=== PATIENT | female | born 1990 | race Caucasian/White ===

== ENCOUNTER 2016-11-06 00:54 | Emergency (ER) | payer OTHER ==
[~2016-11-06] VITALS: Ht 160 cm; Wt 70.0 kg
[~2016-11-06 00:54] MED LIST: MACR100C PO; PHEN-426 PO
[2016-11-06 00:58] VITALS: BP 139/83; PULSE 122; RESP 16; TEMP 97.9; O2SAT 100
[2016-11-06] MEDS ORDERED: SODIUM CHLOR 0.9% 1000 ML INJ 1,000 ML IV ONE (01:15)
[2016-11-06] MEDS ORDERED: SODIUM CHLORIDE 0.9% FLUSH 10 ML FLUSH IVF PRN (01:15)
--- NOTE | 2016-11-06 01:36 | PD ---
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 The patient's first was an . The patient has been followed by Dr. Barros and had an ultrasound performed at 8 weeks of which was normal. The patient has had some intermittent light spotting throughout the , however, had some large vaginal bleeding earlier this evening without any visible products of conception. She states abdominal cramping is 2/10, located in the pelvis, nonradiating, associated with bright red bleeding without any visible clots. The patient has been taking vitamins, denies any chronic medical problems, medications, or allergies. Symptoms are moderate, possibly exacerbated by her current . She took Tylenol prior to arrival with mild alleviation of her symptoms. PFSH Past Medical History Hx Anticoagulant Therapy: No Cardiovascular Problems: No Chemotherapy: No Cerebrovascular Accident: No Diabetes: No Diminished Hearing: No Respiratory: No Tetanus Vaccination: Unknown ?: LMP: 08/23/16 : 2 Para: 0 : 1 Past Surgical History Hysterectomy: No Oral Surgery: Yes (WISDOM TEETH X4 EXTRACTION) Social History Alcohol Use: No Tobacco Use: No Substance Use: No Allergies-Medications (Allergen,Severity, Reaction): Coded Allergies: No Known Allergies (Verified , 11/06/16) Reported Meds & Prescriptions Reported Meds & Active Scripts Active No Active Prescriptions or Reported Medications Review of Systems Except as stated in HPI: all other systems reviewed are Neg General / Constitutional: No: Fever Cardiovascular: No: Chest Pain or Discomfort Respiratory: No: Shortness of Breath Gastrointestinal: No: Nausea, Vomiting, Abdominal Pain Genitourinary: Positive: Pelvic Pain (cramping), Vaginal Bleeding Neurologic: No: Dizziness Physical Exam Narrative GENERAL: Awake, alert, pleasant 26 year-old female who appears her stated age and is somewhat tearful. SKIN: Focused skin assessment warm/dry. HEAD: Atraumatic. Normocephalic. EYES: No injection or drainage. ENT: No nasal bleeding or discharge. Mucous membranes pink and moist. NECK: Trachea midline. No JVD. CARDIOVASCULAR: Regular rate and rhythm. No murmur appreciated. RESPIRATORY: No accessory muscle use. Clear to auscultation. Breath sounds equal bilaterally. GASTROINTESTINAL: Abdomen soft, non-tender, nondistended. No rebound tenderness. MUSCULOSKELETAL: No obvious deformities. No clubbing. No cyanosis. No edema. NEUROLOGICAL: Awake and alert. No obvious cranial nerve deficits. Motor grossly within normal limits. Normal speech. PSYCHIATRIC: Appropriate mood and affect; insight and judgment normal. Data Data Last Documented VS Vital Signs Date Time Temp Pulse Resp B/P Pulse Ox O2 Delivery O2 Flow Rate FiO2 11/06/16 00:58 97.9 122 16 139/83 100 Room Air Orders Beta Hcg (Quant/Titer) (11/06/16 01:15) Complete Rh (11/06/16 01:15) Urinalysis - C+S If Indicated (11/06/16 01:15) Iv Access Insert/Monitor (11/06/16 01:15) Sodium Chloride 0.9% Flush (Ns Flush) (11/06/16:15) Sodium Chlor 0.9% 1000 Ml Inj (Ns 1000 M (11/06/16 01:15) Ed Urine Pregnancytest Poc (11/06/16 01:15) Ed Poc Ultrasound (11/06/16 01:15) Labs Laboratory Tests Test 11/06/16 11/06/16 01:17 02:53 Human Chorionic Gonadotropin, 48[address] MIU/ML Quant Blood Type A POSITIVE Rho(D) Type POSITIVE Urine Color LIGHT-YELLOW Urine Turbidity CLEAR Urine pH 6.5 Urine Specific [place] 1.004 Urine Protein NEG mg/dL Urine Glucose (UA) NEG mg/dL Urine Ketones 10 mg/dL Urine Occult Blood MOD Urine Nitrite NEG Urine Bilirubin NEG Urine Urobilinogen LESS THAN 2.0 MG/DL Urine Leukocyte Esterase NEG Urine RBC 1 /hpf Urine WBC 2 /hpf Urine Squamous Epithelial <1 /hpf Cells Microscopic Urinalysis Comment CULT NOT INDICATED MDM Medical Decision Making Medical Screen Exam Complete: Yes Emergency Medical Condition: Yes Medical Record Reviewed: Yes Interpretation(s) Laboratory Tests Test 11/06/16 11/06/16 01:17 02:53 Human Chorionic Gonadotropin, 93623 MIU/ML Quant Blood Type A POSITIVE Rho(D) Type POSITIVE Urine Color LIGHT-YELLOW Urine Turbidity CLEAR Urine pH 6.5 Urine Specific [place] 1.004 Urine Protein NEG mg/dL Urine Glucose (UA) NEG mg/dL Urine Ketones 10 mg/dL Urine Occult Blood MOD Urine Nitrite NEG Urine Bilirubin NEG Urine Urobilinogen LESS THAN 2.0 MG/DL Urine Leukocyte Esterase NEG Urine RBC 1 /hpf Urine WBC 2 /hpf Urine Squamous Epithelial <1 /hpf Cells Microscopic Urinalysis Comment CULT NOT INDICATED Differential Diagnosis Differential diagnosis includes , threatened AB, incomplete AB, inevitable AB, UTI, dehydration. Narrative Course IV was established, labs are drawn and sent, and the patient was placed on cardiac telemetry monitoring and continuous pulse oximetry monitoring. Bedside ultrasound was performed which reveals an IUP that is low within the uterine segment near the entrance of the cervix with positive heart tones and activity. The patient was shown the ultrasound as it was performed real-time. Rh status was sent to lab. UA was sent to lab. The patient was administered 1 L of IV fluids. The patient is a positive, therefore, no indication for RhoGAM. UA reveals 10 ketones, the patient was administered fluids. The patient is advised to follow-up with her bobbin washer on Monday or return in 48 hours for repeat ultrasound at bedside. She is advised bed rest, no heavy lifting, no sexual activity. Return sooner if bleeding or cramping worsens. Procedures Procedure Narrative Bedside ultrasound was performed using a curvilinear probe. The is located within the uterus, however, low within the uterus at the entrance of the cervix. There were positive heart tones and activity, the patient was shown the ultrasound as it was performed real-time. Rh status was sent to lab and the patient was administered 1 L of IV fluids. Diagnosis Primary Impression: Threatened Patient Instructions: General Instructions Additional Instructions: Follow-up with your bobbin washer on Monday. Return to 48 hours if symptoms worsen or progress. Bed rest, no heavy lifting, no sexual activity. Plenty fluids to stay hydrated. Return immediately if you pass products of conception or bleeding significantly worsens. Med/Other Pt SpecificInfo: No Change to Meds Scripts No Active Prescriptions or Reported Meds Disposition: DISCHARGE HOME Condition: Stable Heron Newell MD Nov 06, 2016 01:36
[2016-11-06 02:12] LABS: BETA HCG QUANT 84537 MIU/ML (0-5)
[2016-11-06 03:10] LABS: BLOOD, URINE MOD (NEG); GLUCOSE,URINE NEG (NEG); KETONE, URINE 10 mg/dL (NEG); NITRITE,URINE NEG (NEG); PH, URINE 6.5 (5.0-8.5); SQUAMOUS EPITHELIAL CELL URINE <1 /hpf (0-5); URINE COLOR LIGHT-YELLOW (YELLW/STRAW)
[2016-11-06 03:11] LABS: COMMENT (UR) CULT NOT INDICATED; CULTURE IF INDICATED CULT NOT INDICATED
[2016-11-07] MEDS ORDERED: DOXY100C PO (00:22)
[2016-11-07] MEDS ORDERED: IBUP-232 PO (00:22)
[2016-11-07] MEDS ORDERED: NORC5TAB PO (00:22)
== END 2016-11-06 03:38 | disposition home or self-care (01) ==
LOC: NEPC 00:54
DX: O20.0 Threatened abortion (principal); O26.891 Other specified pregnancy related conditions, first trimester; R10.2 Pelvic and perineal pain; Z3A.10 10 weeks gestation of pregnancy
CPT/HCPCS: 81001; 84702; 84703; 86901; 96360; 96361; 99284; J7030

== ENCOUNTER 2016-11-06 19:12 | Emergency (ER) | payer OTHER ==
[~2016-11-06] VITALS: Ht 160 cm; Wt 70.0 kg
[2016-11-06 19:15] VITALS: BP 125/65; PULSE 90; RESP 16; TEMP 97.7; O2SAT 100
[2016-11-06] MEDS ORDERED: SODIUM CHLOR 0.9% 1000 ML INJ 1,000 ML IV ONE ×2 (19:38→20:45)
[2016-11-06] MEDS ORDERED: MORPHINE SULFATE 4 MG/ML INJ IV PUSH ONE ×4 (19:45→22:45)
[2016-11-06] MEDS ORDERED: ONDANSETRON HCL 4 MG/2 ML VIAL IV PUSH ONE (19:45)
--- NOTE | 2016-11-06 19:54 | PD ---
HPI Chief Complaint: Related Problem Time Seen by Provider: 19:38 Travel History International Travel<30 days: No Contact w/Intl Traveler<30days: No Traveled to known affect area: No History of Present Illness HPI The patient is a 26-year-old female who presents emergency Department for vaginal bleeding in . The patient is whose last menstrual cycle was August 23, 2016. The patient's first was of the . The patient states she developed some intermittent vaginal spotting earlier this month, was seen in emergency department yesterday for heavy vaginal bleeding and cramping. The patient had a bedside ultrasound at that time which revealed an IUP with positive heart tones, however, ultrasound revealed that the was low in the uterus and cervix. She presents with increasing cramping and increasing bleeding which started this morning. She now states she is passing dark red blood clots, denies the passage of of any visible products of conception. The abdominal cramping is moderate, associated with bleeding, and persistent. 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 The patient also notes mild nausea with one episode of vomiting earlier today. PFSH Past Medical History Hx Anticoagulant Therapy: No Cardiovascular Problems: No Chemotherapy: No Cerebrovascular Accident: No Diabetes: No Diminished Hearing: No Respiratory: No ?: LMP: 10 WEEKS : 2 Para: 0 : 1 Past Surgical History Hysterectomy: No Oral Surgery: Yes (WISDOM TEETH X4 EXTRACTION) Social History Alcohol Use: No Tobacco Use: No Substance Use: No Allergies-Medications (Allergen,Severity, Reaction): Coded Allergies: No Known Allergies (Verified , 11/06/16) Reported Meds & Prescriptions Reported Meds & Active Scripts Active Ibuprofen 600 Mg Tab 600 Mg PO Q6H PRN [place] (Hydrocodone-Acetaminophen) 5-325 mg Tab 1 Tab PO Q6H PRN Doxycycline Hyclate 100 Mg Cap 100 Mg PO BID Review of Systems Except as stated in HPI: all other systems reviewed are Neg Gastrointestinal: Positive: Nausea, Vomiting Genitourinary: Positive: Pelvic Pain, Vaginal Bleeding Physical Exam Narrative GENERAL: Awake, alert, pleasant 26 year-old female who appears her stated age is in no acute respiratory distress. She does appear moderate discomfort. SKIN: Focused skin assessment warm/dry. HEAD: Atraumatic. Normocephalic. EYES: No scleral icterus. ENT: No nasal bleeding or discharge. Mucous membranes pink and moist. NECK: Trachea midline. No JVD. CARDIOVASCULAR: Regular rate and rhythm. No murmur appreciated. RESPIRATORY: No accessory muscle use. Clear to auscultation. Breath sounds equal bilaterally. GASTROINTESTINAL: Abdomen soft, mild suprapubic tenderness. Pelvic: The exam was performed in the presence of a female nurse. External examination reveals blood at the introitus. Speculum examination reveals a large amount of blood in the vaginal vault. Cervix has a blue discoloration with products of conception at the cervical os, cervix is dilated. I was unable to remove the products of conception. MUSCULOSKELETAL: No obvious deformities. No clubbing. No cyanosis. No edema. NEUROLOGICAL: Awake and alert. No obvious cranial nerve deficits. Motor grossly within normal limits. Normal speech. PSYCHIATRIC: Appropriate mood and affect; insight and judgment normal. Data Data Last Documented VS Vital Signs Date Time Temp Pulse Resp B/P Pulse Ox O2 Delivery O2 Flow Rate FiO2 11/06/16 22:40 110 20 125/70 100 Room Air 11/06/16 19:15 97.7 Orders Beta Hcg (Quant/Titer) (11/06/16 19:38) Complete Blood Count With Diff (11/06/16 19:38) Basic Metabolic Panel (Bmp) (11/06/16 19:38) Sodium Chlor 0.9% 1000 Ml Inj (Ns 1000 M (11/06/16 19:38) Ed Poc Ultrasound (11/06/16 19:38) Morphine Inj (Morphine Inj) (11/06/16 19:45) Ondansetron Inj (Zofran Inj) (11/06/16 19:45) Morphine Inj (Morphine Inj) (11/06/16 20:30) Misoprostol (Cytotec) (11/06/16 20:30) Morphine Inj (Morphine Inj) (11/06/16 20:45) Sodium Chlor 0.9% 1000 Ml Inj (Ns 1000 M (11/06/16 20:45) Morphine Inj (Morphine Inj) (11/06/16 22:45) Labs Laboratory Tests Test 11/06/16 19:53 White Blood Count 27.6 TH/MM3 Red Blood Count 4.24 MIL/MM3 Hemoglobin 13.0 GM/DL Hematocrit 37.5 % Mean Corpuscular Volume 88.5 FL Mean Corpuscular Hemoglobin 30.6 PG Mean Corpuscular Hemoglobin 34.6 % Concent Red Cell Distribution Width 12.3 % Platelet Count 198 TH/MM3 Mean Platelet Volume 8.9 FL Neutrophils (%) (Auto) 94.0 % Lymphocytes (%) (Auto) 2.6 % Monocytes (%) (Auto) 3.1 % Eosinophils (%) (Auto) 0.1 % Basophils (%) (Auto) 0.2 % Neutrophils # (Auto) 25.9 TH/MM3 Lymphocytes # (Auto) 0.7 TH/MM3 Monocytes # (Auto) 0.9 TH/MM3 Eosinophils # (Auto) 0.0 TH/MM3 Basophils # (Auto) 0.1 TH/MM3 CBC Comment DIFF FINAL Differential Comment Sodium Level 134 MEQ/L Potassium Level 3.6 MEQ/L Chloride Level 102 MEQ/L Carbon Dioxide Level 21.9 MEQ/L Anion Gap 10 MEQ/L Blood Urea Nitrogen 5 MG/DL Creatinine 0.69 MG/DL Estimat Glomerular Filtration 103 ML/MIN Rate Random Glucose 121 MG/DL Calcium Level 8.8 MG/DL Human Chorionic Gonadotropin, 49268 MIU/ML Quant MDM Medical Decision Making Medical Screen Exam Complete: Yes Emergency Medical Condition: Yes Medical Record Reviewed: Yes Interpretation(s) Laboratory Tests Test 11/06/16 19:53 White Blood Count 27.6 TH/MM3 Red Blood Count 4.24 MIL/MM3 Hemoglobin 13.0 GM/DL Hematocrit 37.5 % Mean Corpuscular Volume 88.5 FL Mean Corpuscular Hemoglobin 30.6 PG Mean Corpuscular Hemoglobin 34.6 % Concent Red Cell Distribution Width 12.3 % Platelet Count 198 TH/MM3 Mean Platelet Volume 8.9 FL Neutrophils (%) (Auto) 94.0 % Lymphocytes (%) (Auto) 2.6 % Monocytes (%) (Auto) 3.1 % Eosinophils (%) (Auto) 0.1 % Basophils (%) (Auto) 0.2 % Neutrophils # (Auto) 25.9 TH/MM3 Lymphocytes # (Auto) 0.7 TH/MM3 Monocytes # (Auto) 0.9 TH/MM3 Eosinophils # (Auto) 0.0 TH/MM3 Basophils # (Auto) 0.1 TH/MM3 CBC Comment DIFF FINAL Differential Comment Sodium Level 134 MEQ/L Potassium Level 3.6 MEQ/L Chloride Level 102 MEQ/L Carbon Dioxide Level 21.9 MEQ/L Anion Gap 10 MEQ/L Blood Urea Nitrogen 5 MG/DL Creatinine 0.69 MG/DL Estimat Glomerular Filtration 103 ML/MIN Rate Random Glucose 121 MG/DL Calcium Level 8.8 MG/DL Human Chorionic Gonadotropin, 34257 MIU/ML Quant Differential Diagnosis Differential diagnosis includes incomplete AB, inevitable AB, missed AB, dehydration, UTI, normal . Narrative Course A bedside ultrasound was performed, there was no visible IUP or heart tones consistent with spontaneous AB. The patient was administered IV fluids, Zofran, and morphine. A pelvic exam was completed in the presence of a female nurse. CBC, BMP, and beta hCG were sent to lab. I reviewed the patient's blood work from yesterday, she is A+, therefore, no indication for RhoGAM. Pelvic examination was completed, the patient had blood in the vaginal vault, cervix is dilated with products of conception at the cervical loss, is unable to remove them with forceps. Therefore, the on-call OB ED was notified. The patient was redosed with morphine. I discussed the patient with the on-call OB ED recommends Cytotec and if she does not pass it, he will come down and evaluate the patient in the emergency department. Therefore, the patient was administer Cytotec 200 mics by mouth. The patient's beta hCG is fall from [phone] consistent with demise. The patient was redosed a third time with morphine 4 mg intravenously for continuing pain and cramps. A repeat pelvic examination was performed, was able to remove several large blood clots, however, still appears about illicit conception at the cervical os. The patient was dosed once again with morphine, as unable to remove the products of conception, therefore, I discussed the patient once again with the on-call hospitalist OB who will evaluate the patient in the emergency department. Dr. Manuel evaluated the patient in the emergency department and was able to remove the products of conception which were sent to pathology. The patient was monitored in the emergency department for excessive bleeding and pain control. Diagnosis Primary Impression: Spontaneous Patient Instructions: General Instructions Additional Instructions: Medications as directed. Follow-up with Dr. Barros. Return if symptoms worsen or progress. Med/Other Pt SpecificInfo: Prescription(s) given Scripts Ibuprofen 600 Mg [id number] Mg PO Q6H PRN (Pain/Inflammation) #20 TAB Ref 0 Prov:Heron Newell MD 11/07/16 Hydrocodone-Acetaminophen ([place])5-325 mg Tab1 Tab PO Q6H PRN (PAIN) #20 TAB Ref 0 Prov:Heron Newell MD 11/07/16 Doxycycline Hyclate 100 Mg [id number] Mg PO BID #20 CAP Ref 0 Prov:eHron Newell MD 11/07/16 Disposition: 01 DISCHARGE HOME Condition: Stable Heron Newell MD Nov 06, 2016 19:54
[2016-11-06 20:10] VITALS: BP 120/71; PULSE 81; RESP 22; O2SAT 100
[2016-11-06 20:18] LABS: AUTOMATED NEUTROPHIL # 25.9 TH/MM3 (1.8-7.7); BASOPHIL # 0.1 TH/MM3 (0-0.2); BASOPHIL % 0.2 % (0.0-2.0); EOSINOPHIL % 0.1 % (0.0-4.0); HEMATOCRIT 37.5 % (35.0-46.0); HEMO FLAGS DIFF FINAL; LYMPH % 2.6 % (9.0-44.0); LYMPHOCYTE # 0.7 TH/MM3 (1.0-4.8); MEAN CELL VOLUME 88.5 FL (80.0-100.0); MEAN CORPUSCULAR HEMOGLOBIN 30.6 PG (27.0-34.0); MEAN CORPUSCULAR HGB CONC 34.6 % (32.0-36.0); MONO % 3.1 % (0.0-8.0); PLATELET COUNT 198 TH/MM3 (150-450); RED BLOOD COUNT 4.24 MIL/MM3 (4.00-5.30); RED CELL DISTRIBUTION WIDTH 12.3 % (11.6-17.2); WHITE BLOOD COUNT 27.6 TH/MM3 (4.0-11.0)
[2016-11-06] MEDS ORDERED: MISOPROSTOL 200 MCG TAB PO ONE (20:30)
[2016-11-06 20:39] LABS: BICARBONATE 21.9 MEQ/L (21.0-32.0); POTASSIUM 3.6 MEQ/L (3.5-5.1)
[2016-11-06 20:46] VITALS: BP 118/68; PULSE 82; RESP 18; O2SAT 100
[2016-11-06 21:00] VITALS: BP 126/69; PULSE 84; RESP 18; O2SAT 100
[2016-11-06 22:40] VITALS: BP 125/70; PULSE 110; RESP 20; O2SAT 100
--- NOTE | 2016-11-06 23:10 | PD.CONS ---
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 This was seen yesterday and evaluated in the main ER at that time had bedside ultrasound showed intrauterine at 9-10 weeks size with positive cardiac motion. She returns today with increased bleeding cramping. Ultrasound now shows the saccular structure in the cervix no cardiac motion noted. On exam the patient was seen and noted to have a sac structure and the cervix was clear fluid filled, the ER doctor could not tease the tissue out of the cervix so he called me for consult. Exam-patient is minimal bleeding at this time, speculum was placed in the vagina at that time I can see the cervix was dilated and there was a 2-3 cm sac sitting in the cervix leaving it open to ring forceps were used to grasp the saclike structure and it ruptured and I grasped the tissue within that sac and placed traction, large placental tissue mass was removed out and the small embryo washed out behind that intact .,embryo was 9-10 weeks size approximate 3 cm crown-rump. The ring forcep was used again placed up inside the uterus opened and grasp tissue and pulled and another small amount of placental-like tissue was removed. After that several similar maneuvers with ring forcep only produced small clots. This indicates the uterus is essentially empty at this point, and the cervix has started to re- form and there was no bleeding, no adnexal masses and the uterus was slightly enlarged 1+ tender to palpation Impression-- incomplete spontaneous AB at 10 weeks that basically delivered itself through the cervical external os and the ring forceps just assisted the complete removal and extraction of POC plan--patient will be discharged to the emergency room after another small time of observation. She'll be discharged on Motrin and Lortab and doxycycline by mouth, I will text Dr. Barros in the morning and let him know that this patient has miscarried., She does not need a RhoGAM shot [ A + blood type] Oscar Boyd II, MD Nov 06, 2016 23:10
[2016-11-07] MEDS ORDERED: NORC5TAB PO (00:22)
[2016-11-07] MEDS ORDERED: IBUP-232 PO (00:22)
[2016-11-07] MEDS ORDERED: DOXY100C PO (00:22)
== END 2016-11-07 06:05 | disposition home or self-care (01) ==
LOC: NEPE 19:12
DX: O03.9 Complete or unspecified spontaneous abortion without complication (principal); O26.891 Other specified pregnancy related conditions, first trimester; R11.2 Nausea with vomiting, unspecified; Z3A.10 10 weeks gestation of pregnancy
CPT/HCPCS: 80048; 84702; 85025; 88305; 96361; 96374; 96375; 96376; 99285; J2270; J2405; J7030